=== PATIENT | male | born 1980 | race Caucasian/White ===

== ENCOUNTER 2024-02-11 19:24 | Emergency (ER) | payer OTHER, SELFPAY ==
[2024-02-11 19:25] VITALS: BMI 36.6
[2024-02-11 19:27] VITALS: BP 162/100
--- NOTE | 2024-02-11 19:30 | ED.GENMED ---
ED Provider Triage
<Clementine Aguero MATHEMATICS LECTURER - Last Filed: 02/11/24 19:33>
-
Patient seen by provider in Triage?: Seen in Triage
Attestation: A medical screening examination has been initiated by a qualified medical provider. Based on the assessment performed at this time, it has been determined that an emergent medical condition may exist and the patient has been informed
that further medical evaluation and possible additional diagnostic testing may be needed.
HPI: 43-year-old male left-sided upper back and left-sided chest pain. Back pain started 3 weeks ago, chest pain started a week ago. Has been 'pretty consistent. Back is like a numbing, and pulled muscle because of the feeling, chest is like a
sharper pain. No recollection of overuse or injury.
GENERAL: Alert , in no apparent distress
EYE: No visual abnormalities.
NECK: Trachea midline
ENT: No visible abnormalities.
LUNGS: No acute respiratory distress
NEUROLOGICAL: Alert and oriented
SKIN: Skin intact. No visible changes.
MUSCULOSKELETAL: Moving extremities normally
PSYCH: Normal and appropriate interaction.
This is a medical evaluation conducted in person to initiate diagnostic evaluation and provide initial therapeutics. Please see further documentation by the treating clinician.
History of Present Illness
<Clementine Aguero, MATHEMATICS LECTURER - Last Filed: 02/11/24 19:33>
General
Chief Complaint: Chest Pain
Time Seen by Provider: 02/11/24 22:35
<JARRED Rogers - Last Filed: 02/12/24 00:40>
General
Source: patient
Exam Limitations: none
History of Present Illness
History of Present Illness:
This is a 43 year old male that comes in with c/o back and chest pain. States that 2-3 weeks ago he started with pain in the left back around his shoulder blade. State that the pain has moved around to the chest. States that in the past week he felt
like it was a little more numb and that the pain came around to his chest. States that the pain has been constant but goes in waves and is sometime less. States that he felt dizzy last week and over the weekend but not today. Denies any fever,
chills, SOB, abd pain, nausea, vomiting, diarrhea, headache, urinary burning.
Past History
<Clementine Aguero NP - Last Filed: 02/11/24 19:33>
Past History
ED Past Medical History: None
ED Past Surgical History: Other (Hernia repair)
Social History
Tobacco: Non-smoker
Alcohol: Occasional
Personal: Single
Living: with family
Employment: Employed
<JARRED Rogers - Last Filed: 02/12/24 00:40>
Past History
ED Past Medical History: Negative Asthma, HTN, Hypercholesterolemia or NIDDM
Review of Systems
<JARRED Rogers - Last Filed: 02/12/24 00:40>
Review of Systems
All Other Systems: ROS reviewed and negative except as documented in HPI and ROS
Constitutional: Reports no symptoms; Denies fever or chills
EENT: Reports no symptoms
Respiratory: Reports no symptoms; Denies cough or trouble breathing
Cardiac: Reports chest pain
ABD/GI: Reports no symptoms; Denies abdominal pain, nausea, vomiting or diarrhea
: Reports no symptoms; Denies dysuria, frequency or urgency
Musculoskeletal: Reports back pain (Left sided around scapula)
Skin: Reports no symptoms
Neurological: Reports dizzy (last week but not today); Denies headache
Psychiatric: Reports no symptoms
Phy Exam
<JARRED Rogers - Last Filed: 02/12/24 00:40>
General Physical Exam
General Presentation: well appearing and no apparent distress
General age: appears stated age
General Skin: warm and dry
General Habitus: normal
General Mental: alert
General Hydration: appears well hydrated
ENT Exam
ENT Exam: TM's normal, pharynx normal and neck supple
Eye Exam
Eye Exam: EOMI
Cardiovascular Exam
Cardiovascular Exam: regular rate/rhythm, no edema, no murmur and normal peripheral pulses
Pulmonary Exam
Pulmonary Exam: lungs clear, no respiratory distress, no rales, chest non tender, no crackles, no rhonchi, no wheezing and no cough
Gastrointestinal Exam
Gastrointestinal Exam: normal bowel sounds, non tender, soft, no organomegaly, no pulsatile mass and non distended
Musculoskeletal Exam
Musculoskeletal Exam: full ROM and no edema
Skin Exam
Skin Exam: normal color, warm/dry, no rash and no petechia
Psychiatric Exam
Psychiatric Exam: normal mood/affect
Scores
<JARRED Rogers - Last Filed: 02/12/24 00:40>
Heart Score for Chest Pain Patients
STEMI patient?: No
History: Slightly or Non-Suspicious
ECG: Normal
Age: </= 45 years
Risk Factors: No Risk Factors
Troponin: </= Normal Limit
Heart Score for Chest Pain Patients: 0
Heart Score Risk: 2.5% MACE over next 6 weeks
Course
<Clementine Aguero NP - Last Filed: 02/11/24 19:33>
Orders/Labs/Results
Orders:
Orders
02/11/24 19:25
Electrocardiogram (*1) Urgent
Reason for Study: Other
Other Reason for Exam: Respiratory Distress
Cardiac Monitoring- Treatment ONCE
EKG- Treatment ONCE
IV Insert/Care/Rem.- Treatment PRN
CR Chest - 2 Views Urgent
Comment:
Reason For Exam: respiratory distress
O2 Therapy [RESP] Urgent
Titrate/Wean O2 to maintain O2 sat greater than (%): 93
Special Instructions: TO MAINTAIN CONTINUOUS O2 SATS >/= 93%
Pulse Ox/cont/shift [RESP] Urgent
Quantity: 1
Special Instructions: continuous pulse ox
02/11/24 19:38
Complete Blood Count/With Diff Urgent
Comprehensive Metabolic Panel Urgent
NT-proBNP Urgent
Troponin I Urgent
02/11/24 22:45
Acetaminophen [Tylenol] 1,000 mg PO NOW STA
Ketorolac [Toradol] 30 mg IV NOW STA
02/11/24 22:57
D-Dimer Urgent
Troponin I Urgent
Abnormal Lab Results
02/11/24
19:38
MCH 32.1 H pg
(27.0-31.0)
Absolute Monos (auto) 0.7 H 10^3/uL
(0.1-0.6)
Carbon Dioxide 31 H mmol/L
(22-30)
Calcium 10.3 H mg/dl
(8.4-10.2)
ALT 102 H U/L
(0-50)
Total Protein 8.4 H g/dl
(6.3-8.2)
Albumin 5.4 H g/dl
(3.5-5.0)
02/11/24 19:38
02/11/24 19:38
Vital Signs
Initial and Last Documented VS:
Initial Vital Signs
Temp Pulse BP Pulse Ox
99.3 F 99 162/100 99
02/11/24 19:27 02/11/24 19:27 02/11/24 19:27 02/11/24 19:27
Last Documented Vital Signs
Temp Pulse Resp BP Pulse Ox
99.3 F 72 18 139/91 95
02/11/24 19:27 02/11/24 23:30 02/11/24 23:15 02/11/24 23:05 02/11/24 23:30
<JARRED Rogers - Last Filed: 02/12/24 00:40>
Orders/Labs/Results
Orders:
Orders
02/11/24 19:25
Electrocardiogram (*1) Urgent
Reason for Study: Other
Other Reason for Exam: Respiratory Distress
Cardiac Monitoring- Treatment ONCE
EKG- Treatment ONCE
IV Insert/Care/Rem.- Treatment PRN
CR Chest - 2 Views Urgent
Comment:
Reason For Exam: respiratory distress
O2 Therapy [RESP] Urgent
Titrate/Wean O2 to maintain O2 sat greater than (%): 93
Special Instructions: TO MAINTAIN CONTINUOUS O2 SATS >/= 93%
Pulse Ox/cont/shift [RESP] Urgent
Quantity: 1
Special Instructions: continuous pulse ox
02/11/24 19:38
Complete Blood Count/With Diff Urgent
Comprehensive Metabolic Panel Urgent
NT-proBNP Urgent
Troponin I Urgent
02/11/24 22:45
Acetaminophen [Tylenol] 1,000 mg PO NOW STA
Ketorolac [Toradol] 30 mg IV NOW STA
02/11/24 22:57
D-Dimer Urgent
Troponin I Urgent
Abnormal Lab Results
02/11/24
19:38
MCH 32.1 H pg
(27.0-31.0)
Absolute Monos (auto) 0.7 H 10^3/uL
(0.1-0.6)
Carbon Dioxide 31 H mmol/L
(22-30)
Calcium 10.3 H mg/dl
(8.4-10.2)
ALT 102 H U/L
(0-50)
Total Protein 8.4 H g/dl
(6.3-8.2)
Albumin 5.4 H g/dl
(3.5-5.0)
02/11/24 19:38
02/11/24 19:38
ALT elevation. Total protein slightly elevated. Albumin slightly elevated. Troponin <0.012, Pro-BNP 26.7
Second Troponin <0.012, D-dimer <0.27
Vital Signs
Initial and Last Documented VS:
Initial Vital Signs
Temp Pulse BP Pulse Ox
99.3 F 99 162/100 99
02/11/24 19:27 02/11/24 19:27 02/11/24 19:27 02/11/24 19:27
Last Documented Vital Signs
Temp Pulse Resp BP Pulse Ox
99.3 F 72 18 139/91 95
02/11/24 19:27 02/11/24 23:30 02/11/24 23:15 02/11/24 23:05 02/11/24 23:30
<JARRED Rogers - Last Filed: 02/12/24 00:40>
MDM/Problems Addressed
Differential Diagnosis Includes:
Musculoskeletal pain. Coronary syndrome
MDM/Problems Addressed:
This is a 43 year old male that comes in with c/o left sided back pain and chest pain that started 2-3 weeks ago. Patient went to [facility] and was sent in to r/o a PE.
Will get labs, chest x-ray.
Back into see patient. States that the pain medication that he was given did not make any different in his pain. Explained that both Troponin are normal along with the D-dimer. This may be all musculoskeletal in nature. Patient to follow up with
the family doctor for recheck in the next 2-3 days. Return with increased or changing pain.
Chronic conditions affecting care:
NA
Acute Exacerbation and/or Progression of Chronic Illness:
NA
<JARRED Rogers - Last Filed: 02/12/24 00:40>
*Radiology
Radiology exam reviewed: preliminary read by ED provider (Chest- Negative for active disease. )
*EKG
Interpreted by ED Provider?: Yes
Heart Rate: 97
Rate: normal
Rhythm: sinus
[place]: normal axis
Interval: normal interval
QRS Pattern: normal QRS
Ischemia: no ischemia
*Paper Cup Handle Machine Operator Interpretation
Rate: normal
Heart Rate: 94
Rhythm: sinus and PVC's
*Critical Care Note
Total Time (30-74mins, 75-104mins- exclusive of procedures): Not Applicable
ED Attending Note
<Clementine Aguero NP - Last Filed: 02/11/24 19:33>
-
Portions of this chart may have been created with voice recognition software.� Occasional wrong word or��sound alike� substitutions may have occurred due to the inherent limitations of voice recognition software.
Discharge Plan
Departure
Patient Disposition: Home (Routine Discharge)
Date of Disposition: 02/12/24
Time of Disposition: 00:33
Patient with high blood pressure during this ER visit?: Yes
Condition: Good
Covid-19: Not Applicable
Discharge Problem:
Chest pain
Instructions: Chest Pain PCP Follow Up, BLOOD PRESSURE
Referrals:
Delroy Aburto, DO [Family Provider] - Follow up in 2-3 days
Activity Restrictions/Additional Instructions:
As discussed, your blood work shows that your Troponin are both normal and your D-dimer is negative. Chest x-ray is normal. Please follow up with the family doctor in the next 2-3 days for recheck. You may use Tylenol 1000mg every 6 hours for pain
and Ibuprofen 600mg every 6 hours with food for pain. IF YOU HAVE INCREASED OR CHANGING PAIN, OR YOU HAVE ANY OTHER CONCERNS PLEASE RETURN TO THE EMERGENCY ROOM.
Interventions
Interventions:
*Risk Screen - Suicide Last Done: 02/11/24 19:30
*General Assessment Last Done: 02/11/24 19:30
*Neglect/Abuse Screening Last Done: 02/11/24 19:30
ED- Fall Risk Assessment Last Done: 02/11/24 19:29
*ED COVID-19 Vaccine History Last Done: 02/11/24 19:29
Discharge Date and Time
Print Language: POLISH
[2024-02-11 19:50] LABS: % Basophils 0.4 % (0-2); % Eosinophils 2.3 % (0-6); % Immature Granulocytes 0.3 % (0-0.5); % Lymphocytes 32.7 % (20.5-51.1); % Monocytes 8.7 % (1.7-9.3); % Neutrophils 55.6 % (42.2-75.2); Absolute Eosinophils 0.2 10^3/uL (0-0.7); Absolute Lymphocytes 2.6 10^3/uL (1.2-3.4); Absolute Monocytes 0.7 10^3/uL (0.1-0.6); Absolute Neutrophils 4.4 10^3/uL (1.4-6.5); Hematocrit 46.3 % (39.0-52.0); Hemoglobin 15.9 g/dL (13.0-18.0); Mean Corp Hgb Conc. 34.3 g/dL (33.0-37.0); Mean Corpuscular Hgb 32.1 pg (27.0-31.0); Mean Corpuscular Volume 93.3 fL (80.0-94.0); Mean Platelet Volume 9.4 fL (7.4-10.4); Nucleated Red Blood Cells % 0 % (-); Platelet Count 177 10^3/uL (130-400); Red Blood Cell Count 4.96 10^6/uL (4.70-6.10); Red Cell Dist. Width 13.1 % (11.5-14.5)
[2024-02-11 20:03] LABS: ALT (SGPT) 102 U/L (0-50); AST (SGOT) 55 U/L (17-59); Albumin 5.4 g/dl (3.5-5.0); Alkaline Phosphatase 41 U/L (38-126); Blood Urea Nitrogen 16 mg/dl (9-20); Calcium 10.3 mg/dl (8.4-10.2); Carbon Dioxide 31 mmol/L (22-30); Chloride 101 mmol/L (98-107); Glucose 87 mg/dl (70-99); Potassium 4.3 mmol/L (3.5-5.1); Sodium 144 mmol/L (135-145); Total Bilirubin 0.5 mg/dl (0.2-1.3); Total Protein 8.4 g/dl (6.3-8.2); eGFR > 60.00
[2024-02-11 20:17] LABS: Troponin I < 0.012 ng/ml
[2024-02-11 20:37] LABS: NT-proBNP 26.7 pg/ml
[2024-02-11] MEDS: TYLENOL 1000 MG PO (23:03)
[2024-02-11] MEDS: TORADOL 30 MG IV (23:04)
[2024-02-11 23:05] VITALS: BP 139/91
[2024-02-11 23:28] LABS: Troponin I < 0.012 ng/ml
[2024-02-11 23:42] LABS: D-Dimer < 0.27 ug/mlFEU (0.00-0.50)
[2024-02-12] VITALS: BP 129/79
== END 2024-02-12 00:56 | disposition home or self-care (01) ==
LOC: EMR 19:24
PROVIDERS: Clinical Nurse Specialist Family Health; EMERGENCY PHYSICIAN Emergency Medicine; REFERRING PHYSICIAN Family Medicine
DX: R07.89 Other chest pain (principal)
CPT/HCPCS: 99283; 96374; 71046; 80053; 83880; 84484; 85025; 85379; 93005

== ENCOUNTER → 2024-05-16 09:43 | Outpatient (REF) | payer OTHER, SELFPAY | LOC: RAD 09:43 | PROVIDERS: ATTENDING PHYSICIAN Family Medicine | DX: N50.82 Scrotal pain (principal) | CPT/HCPCS: 76870; 93976 ==

== ENCOUNTER → 2024-08-10 07:54 | Outpatient (REF) | payer OTHER, SELFPAY | LOC: PAVMRI 07:54 | PROVIDERS: ATTENDING PHYSICIAN Physician Assistant Medical | DX: R51.9 Headache, unspecified (principal); R20.2 Paresthesia of skin | CPT/HCPCS: 70551 ==

== ENCOUNTER → 2024-10-10 13:01 | Outpatient (REF) | payer OTHER, SELFPAY | LOC: MRI 3T 13:01 | PROVIDERS: ATTENDING PHYSICIAN Neurological Surgery; FAMILY PHYSICIAN Physician Assistant Medical | DX: R20.2 Paresthesia of skin (principal); R93.0 Abnormal findings on diagnostic imaging of skull and head, not elsewhere classified | CPT/HCPCS: 70553; A9575 ==